=== PATIENT | male | born 1970 | race Caucasian/White ===

== ENCOUNTER → 2016-12-05 | Outpatient (CLI) | payer OTHER ==
[~2016-12-05] MED LIST: LORT5TAB PO; NAPR550 PO; Z.0.NO CURRENT MEDS
[2016-12-05 10:03] LABS: WET PREP SPERM NONE SEEN /HPF (NONE SEEN)
== END ==
LOC: CLAB 09:13
PROVIDERS: ATTEND Urology
DX: Z30.2 Encounter for sterilization (principal)
CPT/HCPCS: 89321